=== PATIENT | male | born 1965 | race Caucasian/White ===

== ENCOUNTER 2016-11-22 13:41 | Emergency (ER) | payer SELFPAY ==
[2016-11-22] MEDS ORDERED: Sodium Chloride 0.9% 10 ML Syringe FLUSH PRN (14:05)
[2016-11-22] MEDS ORDERED: Sodium Chloride 0.9% 1,000 ML IV ONE (14:06)
[2016-11-22] MEDS ORDERED: Ampicillin/Sulbactam Na 3 GM in Sodium Chloride 0.9% 100 ML IV ONE (14:07)
[2016-11-22 14:49] LABS: CHLORIDE,CL 106 mmol/L (98-107); SODIUM,NA 141 mmol/L (136-145)
--- NOTE | 2016-11-23 07:57 | ER ---
Date of Service: 11/22/2016 SUBJECTIVE: Hugo presents to the emergency room with complaints of animal bite to his right wrist as well as vertigo. The patient states that he was bit by a dog approximately 4 days ago in the medial aspect of his right wrist. He states that since that time, he has noticed increased swelling and erythema to the area. He states it has also become warm to the touch. The patient states that today he developed onset of severe vertigo. He does have a history of intermittent vertigo in the past and states that the symptoms are severe today. He states that he has never had any imaging done to his head. He states he is not experiencing any chest pain or shortness of breath and denies any recent head trauma. PAST MEDICAL HISTORY: None. MEDICATIONS: None. ALLERGIES: NKDA. REVIEW OF SYSTEMS: General: No fever or chills. HEENT: No sore throat, rhinorrhea, or congestion. Respiratory: No shortness of breath. Cardiac: Denies any substernal chest pain. No jaw, arm, neck, or back pain. GI: No nausea, vomiting, or diarrhea. No melena, hematochezia, or hematemesis. : Denies any dysuria. Musculoskeletal: Again erythema from dog bite to the medial aspect of the right wrist. States that he is able to move his fingers without difficulty. Neurovascular: Circulation, sensation, and motor function all within normal limits in distal portion of his extremities. PHYSICAL EXAMINATION: General: This is a 51-year-old male patient, in no acute distress. Vital Signs: Please see vital signs. Skin: Warm, pale, and dry. HEENT: Head is normocephalic, atraumatic. Eyes, PERRLA. Extraocular movements are intact. There is no funduscopic papilledema noted. No vertical or horizontal nystagmus noted. Ears, TMs are clear. Mouth, oral mucosa is moist. Lungs: Clear to auscultation. Heart: Regular rate and rhythm. Abdomen: Soft, nontender. There is no hepatosplenomegaly or masses noted. Extremities: Without edema. Again, he does have erythema and edema to the medial aspect of his right wrist. He denies any injury elsewhere. Neurologic: Cranial nerves II through XII are intact. The patient's speech is fluent. His gait is within normal limits. He has no pronator drift. No facial droop. Romberg is negative. Remainder of his physical examination is within normal limits. DIAGNOSTICS: CT scan of the patient's brain was obtained. There was no evidence of any acute pathology. A 12-lead EKG was obtained showing no acute changes or ST or T-wave abnormalities. Hematology: WBC is 6.0, hemoglobin is 13.1, platelets are 310. Chemistry: Sodium is 141, potassium is 4.1, chloride is 106, bicarb is 27, BUN is 12, creatinine is 0.8. GFR is greater than 60. Glucose is 96, calcium is 9.32, total bilirubin is 0.4, AST is 13, ALT is 26, alkaline phosphatase is 110. Comprehensive metabolic panel was all within normal limits. Troponin was negative at less than 0.017. CK-MB was 0.5. EMERGENCY ROOM COURSE: The patient was given 3 g of Unasyn IV for the cellulitis to his wrist secondary to the dog bite. He was given a fluid bolus approximately 500 mL of normal saline and stated that he was no longer experiencing any further vertigo. He remained stable in my care in the emergency room. ASSESSMENT: 1. Dog bite. 2. Vertigo, resolved. PLAN: The patient will be discharged. He was started on Augmentin 875 mg 1 twice daily for 10 days. We will have him follow up in the clinic in the next 24 to 48 hours for recheck of the dog bite. His tetanus is up to date. All questions were answered. MWK: 11/22/2016 17:34:04 MODL: 11/22/2016 23:57:50 /[id number]
[2016-11-23 15:52] VITALS: BP 128/88
== END 2016-11-22 16:30 | disposition home or self-care (01) ==
LOC: VM.ED 13:41
DX: S61.551A Open bite of right wrist, initial encounter (principal); R42 Dizziness and giddiness; W54.0XXA Bitten by dog, initial encounter
CPT/HCPCS: 36415; 70450; 80053; 82550; 82553; 84484; 85025; 93005; 96361; 96365; 99284; J0295; J7030; J7050